=== PATIENT | male | born 1970 | race Caucasian/White ===

== ENCOUNTER 2019-06-26 23:38 | Emergency (ER) | payer BC | END 2019-06-26 23:55 | disposition home or self-care (01) | LOC: ERS 23:38 | DX: T18.128A Food in esophagus causing other injury, initial encounter (principal); F17.210 Nicotine dependence, cigarettes, uncomplicated; J45.909 Unspecified asthma, uncomplicated; Z79.51 Long term (current) use of inhaled steroids; Z85.47 Personal history of malignant neoplasm of testis; Z71.6 Tobacco abuse counseling | CPT/HCPCS: 99406 ==